=== PATIENT | male | born 1990 | race Caucasian/White ===

== ENCOUNTER 2019-01-13 16:38 | Emergency (ER) | payer OTHER ==
[~2019-01-13] VITALS: Ht 188 cm; Wt 72.6 kg
[~2019-01-13 16:38] MED LIST: ACCUNEB SO1.25 MG/1 INH; ALBUTEROL2.5 MG/31 INH; VENTOLIN HFA 1818 GM INH
[2019-01-13] MEDS ORDERED: VENTOLIN HFA 1818 GM INH (17:05)
[2019-01-13] MEDS ORDERED: PREDNISONE 10 M10 MG PO (17:05)
[2019-01-13] MEDS ORDERED: ALBUTEROL2.5 MG/31 INH (17:05)
[2019-01-13 17:55] VITALS: BP 120/80
--- NOTE | 2019-01-14 17:37 | EKG ---
[place] [address] ELECTROCARDIOGRAM REPORT Name: AMBER AMEZQUITA Room: [facility]#: [id number] Admission: 01/13/19 Attend Phys: Discharge: 01/13/19 Date of : 89 Report #: [id number] THIS REPORT FOR: //name// [facility] ED Test Date: 2019-01-13 Test Time: 16:53:27 Pat Name: AMBER AMEZQUITA Department: Room: Gender: M [employer]ingo Cashier: John PINA : 1990 Requested By: Erinn Dyer Order Number: [id number] MD: Terrell Bae Measurements Intervals [place] Rate: 73 P: 63 [place]: 123 QRS: 54 QRSD: 102 T: 51 QT: 358 QTc: 395 Interpretive Statements Sinus rhythm No previous ECG available for comparison Electronically Signed On 01-14-2019 17:37:05 CDT by Terrell Bae [email or web address] <ELECTRONICALLY SIGNED> By: Terrell Bae MD, [facility] 01/14/19 1737 1653 1653 Terrell Bae MD, FACC /EPI
== END 2019-01-13 17:56 | disposition home or self-care (01) ==
LOC: M.ERS 16:38
DX: J45.901 Unspecified asthma with (acute) exacerbation (principal); F17.210 Nicotine dependence, cigarettes, uncomplicated

== ENCOUNTER 2021-10-12 20:34 | Emergency (ER) | payer OTHER ==
[~2021-10-12] VITALS: Ht 188 cm; Wt 70.8 kg
[~2021-10-12 20:34] MED LIST changes: +PREDNISONE 10 M10 MG PO
[2021-10-12 20:43] VITALS: BP 110/78
[2021-10-12 21:07] LABS: URINE BILIRUBIN NEGATIVE (Negative); URINE BLOOD NEGATIVE (Negative); URINE CLARITY CLEAR; URINE COLOR YELLOW; URINE GLUCOSE-RANDOM NEGATIVE (Negative); URINE KETONES NEGATIVE (Negative); URINE LEUKOCYTES-REFLEX NEGATIVE (Negative); URINE NITRITE-REFLEX NEGATIVE (Negative); URINE PROTEIN NEGATIVE (Negative); URINE SPECIFIC GRAVITY 1.025 (1.005-1.030)
== END 2021-10-12 21:23 | disposition home or self-care (01) ==
LOC: M.ERS 20:34
PROVIDERS: Physician Assistant
DX: R10.12 Left upper quadrant pain (principal); J45.909 Unspecified asthma, uncomplicated; F17.210 Nicotine dependence, cigarettes, uncomplicated; Z79.899 Other long term (current) drug therapy